=== PATIENT | female | born 1990 | race Caucasian/White ===

== ENCOUNTER 2025-08-17 12:22 | Outpatient (REF) | payer SELFPAY ==
[2025-08-17 22:02] LABS: HCT 42.8 % (36.0-46.0); HGB 13.7 g/dL (11.2-15.7); MCH 27.2 pg (27.0-33.0); MCHC 32.0 % (32.0-36.0); MCV 85 fL (80-95); MPV 9.7 fL (8.0-11.0); Platelet Count 366 10^3/uL (130-400); RBC 5.03 10^6/uL (3.93-5.22); RDW 12.8 % (11.7-14.6); RDW-SD 39.4 fL; WBC 6.32 10^3/uL (4.4-10.8)
[2025-08-17 22:18] LABS: ALT 61 U/L (14-59); AST 28 U/L (15-37); Albumin 4.0 g/dL (3.4-5.0); Alkaline Phosphatase 91 U/L (46-116); Anion Gap 9.2 mmol/L (3-11); BUN 12 mg/dL (7-18); Bilirubin, Total 0.5 mg/dL (0.2-1.0); CO2 28.8 mmol/L (21.0-32.0); Calcium 9.3 mg/dL (8.5-10.1); Chloride 101 mmol/L (98-107); Estimated GFR 117.77 (mL/min/1.73m2); Glucose 102 mg/dL (74-106); Potassium 4.3 mmol/L (3.5-5.1); Sodium 139 mmol/L (136-145); Total Protein 8.7 g/dL (6.4-8.2)
[2025-08-17 22:29] LABS: COMMENT (LAB VIEW ONLY) 111.84 mg/dL; Hemoglobin A1C 6.0 % (<5.7); Microalb ug/mg Crea 12.9 ug/mg Cr
[2025-08-17 22:38] LABS: Calculated LDL 116 mg/dL (<100); Cholesterol 196 mg/dL (<200); HDL Cholesterol 53 mg/dL (>or=50); Triglyceride 138 mg/dL (<150)
[2025-08-18 18:28] LABS: HIV-1/2 Ag & Ab Screen Negative (Negative)
[2025-08-19 11:09] LABS: Chlamydia Result Negative (Negative); GC Result Negative (Negative)
== END 2025-08-17 12:23 | disposition home or self-care (01) ==
LOC: NCHCN 12:22
PROVIDERS: Visit Provider Internal Medicine
DX: E11.9 Type 2 diabetes mellitus without complications (principal); Z11.3 Encounter for screening for infections with a predominantly sexual mode of transmission; I10 Essential (primary) hypertension
CPT/HCPCS: 80053; 80061; 85027; 87389; 87491; 87591; 82043; 82570; 83036